=== PATIENT | male | born 1960 | race Caucasian/White ===

== ENCOUNTER 2019-04-02 19:26 | Emergency (ER) | payer MEDICAID ==
[~2019-04-02] VITALS: Ht 182.9 cm; Wt 76.3 kg
[~2019-04-02 19:26] MED LIST: ERYT1OIN6 LEFT EYE; HYDR-4011 PO
[2019-04-02 19:29] VITALS: Ht 182.9 cm; Wt 76.3 kg
--- NOTE | 2019-04-02 20:24 | ERD ---
ER Documentation Chief Complaint Chief Complaint L eye injury at pts workplace 2 days ago; redness noted HPI 58-year-old male, presents to the emergency department, complaining of 2 days wi th a left eye foreign body sensation that occurred at work. The pain is sharp, constant. The patient denies blurred vision, no nausea or vomiting. ROS All systems reviewed and are negative except as per history of present illness. Medications Home Meds Active Scripts Hydrocodone/Acetaminophen (Naturita 5-325 Tablet) 1 Each Tablet, 1 TAB PO BID PRN for PAIN, #7 TAB Prov:KAILEE LONDON MD 04/02/19 Erythromycin Base (Erythromycin) 1 Gm Oint...g., 1 APPLIC LEFT EYE QHS for 3 Days Prov:KAILEE LONDON MD 04/02/19 Allergies Allergies: Coded Allergies: No Known Allergy (Unverified , 04/02/19) PMhx/Soc Medical and Surgical Hx: pt denies Medical Hx, pt denies Surgical Hx History of Surgery: No Anesthesia Reaction: No Hx Neurological Disorder: No Hx Respiratory Disorders: No Hx Cardiac Disorders: No Hx Psychiatric Problems: No Hx Miscellaneous Medical Probl: No Hx Alcohol Use: Yes (OCCASIONAL DRINKER.) Hx Substance Use: No Hx Tobacco Use: No Smoking Status: Never smoker Physical Exam Vitals Vital Signs Date Temp Pulse Resp B/P (MAP) Pulse Ox O2 O2 Flow FiO2 Time Delivery Rate 04/02/19 98.6 16 141/86 99 Room Air 21:05 (104) 04/02/19 99.3 76 16 144/83 100 19:29 (103) Physical Exam Const: No acute distress Head: Atraumatic Eyes: Left eye with nonpenetrating corneal foreign body, contralateral eye normal ENT: Normal External Ears, Nose and Mouth. Neck: Full range of motion. No meningismus. Resp: Clear to auscultation bilaterally Cardio: Regular rate and rhythm, no murmurs Abd: Soft, non tender, non distended. Normal bowel sounds Skin: No petechiae or rashes Back: No midline or flank tenderness Ext: No cyanosis, or edema Neur: Awake and alert Psych: Normal Mood and Affect Results 24 hrs Current Medications Medications Dose Sig/Heather Start Time Status Last (Trade) Ordered Route PRN Stop Time Admin Dose Reason Admin 1 tab ONCE ONCE 04/02/19 DC 04/02/19 Acetaminophen PO 20:30 20:38 / 04/02/19 20:32 Hydrocodone Bitart (Naturita (5/325)) Procedures/MDM Differential diagnosis include but not limited to: infection bacterial/viral/fungal, iritis, scleritis, corneal abrasion, allergies, foreign body, glaucoma. Physical examination and clinical presentation consistent most likely with left corneal foreign body. During the ED course the patient remained stable, no new complaints. Clinical impression discussed with patient who agrees with management. Procedure: Corneal foreign body removal Location: Left eye. Anesthesia: Tetracaine Procedure: Foreign body carefully removed with a Q-tip followed by normal saline irrigation. No evidence of corneal abrasion or ulcer. Patient tolerated well the procedure without complications. The patient is stable to be treated outpatient and will be discharged home with a Rx for erythromycin. Some side effects of prescribed medications (headache, rash, nausea, vomiting, diarrhea, drowsiness, bleeding, hypertension, interactions with other medications) were reviewed. The patient was instructed to follow up with the primary care provider in the next 48h. If symptoms persist, worsen or new symptoms develop, then patient should return to the ED immediately. Disclaimer: Inadvertent spelling and grammatical errors are likely due to EHR/dictation software use and do not reflect on the overall quality of patient care. Also, please note that the electronic time recorded on this note does not necessarily reflect the actual time of the patient encounter. Departure Diagnosis: Primary Impression: Foreign body of left eye Condition: Stable Additional Instructions: Thank you very much for allowing us to participate in your care. Your health and safety is our top priority at [facility]. The evaluation in the emergency department has been done to rule out an acute emergency. Chronic, [id number] conditions may have not been evaluated; therefore, you need to follow up with a primary care provider in the next 48h. If symptoms persist, worsen or new symptoms develop, then patient should return to the ED immediately. Call your primary care doctor TOMORROW for an appointment during the next 2-4 days and bring all the information provided. Have prescriptions filled and follow precisely the directions on the label. If the symptoms get worse and your provider is unavailable, return to the Emergency Department immediately. KAILEE LONDON MD Apr 02, 2019 20:24
[2019-04-02] MEDS ORDERED: HYDROCODONE/APAP (5/325) TAB PO ONE (20:30)
[2019-04-02 21:05] VITALS: BP 141/86; RESP 16
== END 2019-04-02 21:05 | disposition home or self-care (01) ==
LOC: FTE 19:26
DX: T15.92XA Foreign body on external eye, part unspecified, left eye, initial encounter (principal); X58.XXXA Exposure to other specified factors, initial encounter; Y92.9 Unspecified place or not applicable
CPT/HCPCS: Z7502; Z7610; 99283